=== PATIENT | male | born 1950 | race Caucasian/White ===

== ENCOUNTER → 2017-12-19 | Outpatient (CLI) | payer OTHER ==
[~2017-12-19] MED LIST: ASPI81CH58; CLOP75TA28; NITRO; PRAVASTATIN
== END | disposition home or self-care (01) ==
LOC: Rad HDHVI 10:38
PROVIDERS: ATTEND Internal Medicine Cardiovascular Disease
DX: I11.0 Hypertensive heart disease with heart failure (principal); I50.33 Acute on chronic diastolic (congestive) heart failure
CPT/HCPCS: 93880

== ENCOUNTER → 2017-12-20 | Outpatient (CLI) | payer OTHER ==
[~2017-12-20] VITALS: Ht 185.4 cm; Wt 102.1 kg
[~2017-12-20] MED LIST changes: +ADENOSINE 86 MG in GIVE UN-DILUTED 0 ML IV ONE; +ADENOSINE 90 MG/30 ML INJ IV ONE
== END | disposition home or self-care (01) ==
LOC: Rad HDHVI 13:57
PROVIDERS: ATTEND Internal Medicine Cardiovascular Disease
DX: I11.0 Hypertensive heart disease with heart failure (principal); I50.33 Acute on chronic diastolic (congestive) heart failure; E78.00 Pure hypercholesterolemia, unspecified
CPT/HCPCS: 78452; 93005; 96374; 96375; A9500; J0153

== ENCOUNTER → 2017-12-21 | Outpatient (CLI) | payer OTHER ==
[~2017-12-21] MED LIST changes: -ADENOSINE 86 MG in GIVE UN-DILUTED 0 ML IV ONE; -ADENOSINE 90 MG/30 ML INJ IV ONE
== END | disposition home or self-care (01) ==
LOC: Rad HDHVI 07:59
PROVIDERS: ATTEND Internal Medicine Cardiovascular Disease
DX: I51.7 Cardiomegaly (principal); I50.33 Acute on chronic diastolic (congestive) heart failure
CPT/HCPCS: 93306

== ENCOUNTER → 2021-11-11 | Outpatient (CLI) | payer OTHER ==
[~2021-11-11] MED LIST changes: +ASPI1CHW13; -ASPI81CH58
== END | disposition home or self-care (01) ==
LOC: Rad HDHVI 09:52
PROVIDERS: ATTEND Internal Medicine Cardiovascular Disease
DX: I08.1 Rheumatic disorders of both mitral and tricuspid valves (principal); R06.02 Shortness of breath; I77.819 Aortic ectasia, unspecified site; I25.2 Old myocardial infarction
CPT/HCPCS: 93306

== ENCOUNTER → 2021-11-12 | Outpatient (CLI) | payer OTHER ==
[~2021-11-12] VITALS: Ht 185.4 cm; Wt 100.7 kg
[~2021-11-12] MED LIST changes: +ADENOSINE 84 MG in GIVE UN-DILUTED 0 ML IV ONE; +ADENOSINE 90 MG/30 ML INJ IV ONE
[2021-11-12 12:08] LABS: Basophils # (auto) 0 10 ^3/uL (0-0.2); Basophils % (auto) 0.7 % (0.0-2.0); Eosinophils # (auto) 0.2 10 ^3/uL (0-0.8); Eosinophils % (auto) 3.2 % (0.0-7.0); Hematocrit 40.9 % (41.0-53.0); Hemoglobin 13.6 g/dL (13.5-17.5); Lymphocytes # (auto) 1.1 10 ^3/uL (0.4-5.4); Lymphocytes % (auto) 20.1 % (10.0-50.0); Mean Corpuscular Hgb Conc. 33.3 g/dL (32.0-36.0); Mean Corpuscular Volume 99.2 fL (80.0-100.0); Monocytes # (auto) 0.5 10 ^3/uL (0-1.3); Monocytes % (auto) 9.7 % (0.0-12.0); Neutrophils # (auto) 3.7 10 ^3/uL (1.6-8.6); Neutrophils % (auto) 66.3 % (37.0-80.0); Nucleated Red Blood Cells % 0.1 %; Red Blood Cells 4.12 10^6/uL (4.5-5.90); Red Cell Distribution Width 14.1 % (11.8-14.3); White Blood Cell 5.5 10^3/uL (4.4-10.8)
[2021-11-12 12:14] LABS: Urine Blood Negative /uL (Negative); Urine Specific Gravity 1.022 (1.001-1.035)
[2021-11-12 12:34] LABS: Free T4 (Free Thyroxine) 1.23 ng/dL (0.89-1.76); Prostate Specific Antigen 1.51 ng/mL (0.0-4.0)
[2021-11-12 12:44] LABS: Albumin 3.6 g/dL (3.4-5.0); BUN/Creatinine Ratio 8.9; Bilirubin, Total 0.7 mg/dL (0.2-1.0); Calcium 8.8 mg/dL (8.5-10.1)
== END | disposition home or self-care (01) ==
LOC: Rad HDHVI 08:34
PROVIDERS: ATTEND Internal Medicine Cardiovascular Disease
DX: D51.3 Other dietary vitamin B12 deficiency anemia (principal); I50.33 Acute on chronic diastolic (congestive) heart failure; I10 Essential (primary) hypertension; R00.2 Palpitations; I25.10 Atherosclerotic heart disease of native coronary artery without angina pectoris; E78.5 Hyperlipidemia, unspecified; I73.9 Peripheral vascular disease, unspecified; D64.9 Anemia, unspecified; E11.9 Type 2 diabetes mellitus without complications; E55.9 Vitamin D deficiency, unspecified; R53.1 Weakness; R30.0 Dysuria; C61 Malignant neoplasm of prostate
CPT/HCPCS: 36415; 78452; 80053; 80061; 81003; 82306; 82607; 83036; 84153; 84403; 84439; 84443; 85025; 93005; 96374; 96375; A9500; J0153

== ENCOUNTER → 2021-12-22 | Outpatient (CLI) | payer OTHER ==
[~2021-12-22] MED LIST changes: -ADENOSINE 84 MG in GIVE UN-DILUTED 0 ML IV ONE; -ADENOSINE 90 MG/30 ML INJ IV ONE; +PRAV20TA3 PO; +RANO500T2 PO; +TICA90TA PO
[2021-12-22 11:33] VITALS: BP 129/84
[2021-12-22 11:50] VITALS: BP 129/82
[2021-12-22 16:35] LABS: Basophils # (auto) 0 10 ^3/uL (0-0.2); Basophils % (auto) 0.7 % (0.0-2.0); Eosinophils # (auto) 0.2 10 ^3/uL (0-0.8); Eosinophils % (auto) 3.2 % (0.0-7.0); Hematocrit 43.2 % (41.0-53.0); Lymphocytes # (auto) 1.2 10 ^3/uL (0.4-5.4); Lymphocytes % (auto) 18.8 % (10.0-50.0); Mean Corpuscular Hemoglobin 31.9 pg (28.0-32.0); Mean Corpuscular Hgb Conc. 32.3 g/dL (32.0-36.0); Mean Corpuscular Volume 98.8 fL (80.0-100.0); Monocytes # (auto) 0.6 10 ^3/uL (0-1.3); Monocytes % (auto) 9.4 % (0.0-12.0); Neutrophils # (auto) 4.2 10 ^3/uL (1.6-8.6); Neutrophils % (auto) 67.9 % (37.0-80.0); Red Blood Cells 4.37 10^6/uL (4.5-5.90); Red Cell Distribution Width 14.8 % (11.8-14.3); White Blood Cell 6.2 10^3/uL (4.4-10.8)
[2021-12-22 16:49] LABS: Calcium 8.4 mg/dL (8.5-10.1); Potassium 3.8 mmol/L (3.5-5.1)
[2021-12-22 16:51] LABS: BUN/Creatinine Ratio 14.6; INR 0.96 (0.9-1.15); Partial Thromboplastin Time 26.8 sec (24.6-33.4)
== END | disposition home or self-care (01) ==
LOC: Rad HDHVI 11:18
PROVIDERS: ATTEND Internal Medicine Cardiovascular Disease
DX: Z01.818 Encounter for other preprocedural examination (principal); R94.31 Abnormal electrocardiogram [ECG] [EKG]; J98.4 Other disorders of lung; I70.0 Atherosclerosis of aorta; M47.814 Spondylosis without myelopathy or radiculopathy, thoracic region; R07.89 Other chest pain; R06.02 Shortness of breath; I11.0 Hypertensive heart disease with heart failure; I50.33 Acute on chronic diastolic (congestive) heart failure; R79.1 Abnormal coagulation profile
CPT/HCPCS: 36415; 71046; 80048; 85025; 85610; 85730; 93005; G0463

== ENCOUNTER 2021-12-24 10:55 | Day surgery (SDC) | payer OTHER ==
[~2021-12-24] VITALS: Ht 185.4 cm; Wt 104.3 kg
[~2021-12-24 10:55] MED LIST changes: -CLOP75TA28; -NITRO; -PRAVASTATIN
[2021-12-24] MEDS ORDERED: LIDOCAINE 2%HCL (LOCAL ANESTH.) INJ 20ML MDV ONE (13:09)
[2021-12-24] MEDS ORDERED: IOHEXOL 350 MG/ML 100ML IJ ONE (13:09)
[2021-12-24] MEDS ORDERED: SODIUM CHL 0.9% 50 ML ONE (14:04)
[2021-12-24] MEDS ORDERED: MIDAZOLAM HCL 2MG/2ML 2ml VIAL (1mg/ml) ONE ×2 (14:04→14:28)
[2021-12-24] MEDS ORDERED: fentaNYL CITRATE 100 MCG/2 ML VL ONE (14:04)
[2021-12-24] MEDS ORDERED: ANGIOMAX 250 MG VIAL IV ONE (14:04)
[2021-12-24] MEDS ORDERED: TICAGRELOR 90 MG TAB ONE (14:37)
== END 2021-12-24 16:55 | disposition home or self-care (01) ==
LOC: CATH 10:55
PROVIDERS: ATTEND Internal Medicine Cardiovascular Disease
DX: R94.39 Abnormal result of other cardiovascular function study (principal); I10 Essential (primary) hypertension; I25.10 Atherosclerotic heart disease of native coronary artery without angina pectoris; E78.5 Hyperlipidemia, unspecified; Z79.02 Long term (current) use of antithrombotics/antiplatelets; Z20.822 Contact with and (suspected) exposure to COVID-19; Z87.891 Personal history of nicotine dependence; Z82.49 Family history of ischemic heart disease and other diseases of the circulatory system; Z83.42 Family history of familial hypercholesterolemia; Z80.8 Family history of malignant neoplasm of other organs or systems; Z82.69 Family history of other diseases of the musculoskeletal system and connective tissue
CPT/HCPCS: 93460; 93571; C1760; C1769; C1874; C1887; C1894; C9600; J0583; J1644; J2250; J3010; Q9967; U0003; 93458; 99152; 99153

== ENCOUNTER → 2024-02-19 | Outpatient (CLI) | payer OTHER ==
[~2024-02-19] VITALS: Ht 185.4 cm; Wt 102.1 kg
[~2024-02-19] MED LIST changes: +ADENOSINE 86 MG in GIVE UN-DILUTED 0 ML IV ONE; +ADENOSINE 90 MG/30 ML INJ IV ONE
== END | disposition home or self-care (01) ==
LOC: Rad HDHVI 10:17
PROVIDERS: ATTEND Internal Medicine Cardiovascular Disease
DX: R00.1 Bradycardia, unspecified (principal); I49.1 Atrial premature depolarization; I49.3 Ventricular premature depolarization; I25.110 Atherosclerotic heart disease of native coronary artery with unstable angina pectoris; I10 Essential (primary) hypertension; R07.89 Other chest pain; E78.00 Pure hypercholesterolemia, unspecified; I25.5 Ischemic cardiomyopathy
CPT/HCPCS: 78452; 93005; 93306; 96374; 96375; A9500; J0153

== ENCOUNTER 2024-03-09 11:33 | Inpatient (IN) | payer OTHER ==
[~2024-03-09] VITALS: Ht 185.4 cm; Wt 105.0 kg
[~2024-03-09 11:33] MED LIST changes: -ADENOSINE 86 MG in GIVE UN-DILUTED 0 ML IV ONE; -ADENOSINE 90 MG/30 ML INJ IV ONE
[2024-03-09 11:57] LABS: Basophils # (auto) 0 10 ^3/uL (0-0.2); Basophils % (auto) 0.7 % (0.0-2.0); Eosinophils # (auto) 0.4 10 ^3/uL (0-0.8); Eosinophils % (auto) 6.2 % (0.0-7.0); Hematocrit 38.3 % (41.0-53.0); Hemoglobin 12.6 g/dL (13.5-17.5); Lymphocytes # (auto) 1.8 10 ^3/uL (0.4-5.4); Lymphocytes % (auto) 30.1 % (10.0-50.0); Mean Corpuscular Hemoglobin 31.2 pg (28.0-32.0); Mean Corpuscular Hgb Conc. 32.8 g/dL (32.0-36.0); Mean Corpuscular Volume 95.1 fL (80.0-100.0); Monocytes # (auto) 0.6 10 ^3/uL (0-1.3); Monocytes % (auto) 10.4 % (0.0-12.0); Neutrophils # (auto) 3.1 10 ^3/uL (1.6-8.6); Neutrophils % (auto) 52.6 % (37.0-80.0); Platelet Count (auto) 294 10^3/uL (140-450); Red Blood Cells 4.03 10^6/uL (4.5-5.90); White Blood Cell 5.8 10^3/uL (4.4-10.8)
[2024-03-09 12:17] LABS: Alanine Aminotransferase 20 U/L (7-40); Albumin 3.9 g/dL (3.2-4.8); Alkaline Phosphatase 59 U/L (46-116); Anion Gap 8 (5-15); Aspartate Aminotransferase 10 U/L (13-40); BUN/Creatinine Ratio 9.9 (10.0-20.0); Blood Urea Nitrogen 10 mg/dL (9-23); Carbon Dioxide 25 mmol/L (20-31); Chloride 108 mmol/L (98-107); Glucose 90 mg/dL (74-106); Magnesium 1.9 mg/dL (1.6-2.6); Sodium 141 mmol/L (136-145)
[2024-03-09 12:18] LABS: Bilirubin, Total 0.2 mg/dL (0.2-1.0); Total Protein 6.4 g/dL (5.7-8.2)
--- NOTE | 2024-03-09 12:43 | ED.PDOC ---
HPI Comments 73y F who presents to the ED for chief complaint of chest pain. Pt states she has been having chest pain since last night PM. Pt states the pain is substernal, non-radiating, sharp and tightness in nature, rating the ozuna 5/10, with no associated exacerbating or relieving factors. Pt denies any associated shortness of breath, palpitations, diaphoresis, nausea, vomiting, headache or dizziness. Pt states she has had these symptoms in the past and states she is followed by Dr. Akers, chief development officer. Pt otherwise denies any other symptoms at this time. Chief Complaint: Chest Pain Time Seen by MD: 12:41 Primary Care Provider: KAYLA Norton Notes: Medications, Allergies Allergies: Coded Allergies: NO KNOWN ALLERGIES (Unverified , 11/02/10) Home Meds Reported Medications Pravastatin Sodium (PRAVACHOL TABLET) 20 Mg Tb, 40 MG PO DAILY, TAB 12/22/21 Ranolazine (Ranexa) 500 Mg Tab, 500 MG PO BID 12/22/21 Ticagrelor Base (BRILINTA) 90 Mg Tab, 90 MG PO BID 12/22/21 Aspirin (Aspirin Adult Low Strengt) 81 Mg Chw 11/02/10 Information Source: Patient Mode of Arrival: Ambulatory Brought in by: family member Past Medical History PAST MEDICAL HISTORY: CAD Surgical History: Denies all surgeries Family History Family History: Reviewed,noncontributory to illness Social History Smoker: Non-Smoker Alcohol: Denies ETOH Use Drugs: Denies Drug Use Lives In: Home Constitutional: denies: chills, diaphoresis, fatigue, fever, malaise, sweats, weakness, others EENTM: denies: blurred vision, double vision, ear bleeding, ear discharge, ear drainage, ear pain, ear ringing, eye pain, eye redness, hearing loss, mouth pain, mouth swelling, nasal discharge, nose bleeding, nose congestion, nose pain, photophobia, tearing, throat pain, throat swelling, voice changes, others Respiratory: denies: cough, hemoptysis, orthopnea, SOB at rest, shortness of breath, SOB with excertion, stridor, wheezing, others Cardiovascular: reports: chest pain; denies: dizzy spells, diaphoresis, Dyspnea on exertion, edema, irregular heart beat, left arm pain, lightheadedness, palpitations, PND, syncope, others Gastrointestinal: denies: abdomen distended, abdominal pain, blood streaked bowels, constipated, diarrhea, dysphagia, difficulty swallowing, hematemesis, melena, nausea, poor appetite, poor fluid intake, rectal bleeding, rectal pain, vomiting, others Genitourinary: denies: burning, dysuria, flank pain, frequency, hematuria, incontinence, penile discharge, penile sore, pain, testicle pain, testicle swelling, urgency, others Neurological: denies: dizziness, fainting, headache, left sided numbness, left sided weakness, numbness, paresthesia, pre-existing deficit, right sided num bness, right sided weakness, seizure, speech problems, tingling, tremors, weakness, others Musculoskeletal: denies: back pain, gout, joint pain, joint swelling, muscle pain, muscle stiffness, neck pain, others Integumetry: denies: bruises, change in color, change in hair/nails, dryness, laceration, lesions, lumps, rash, wounds, others Allergic/Immunocompromised: denies: Difficulty Healing, Frequent Infections, Hives, Itching, others Hematologic/Lymphatic: denies: anemia, blood clots, easy bleeding, easy bruising, swollen glands, others Endocrine: denies: excessive hunger, excessive sweating, excessive thirst, excessive urination, flushing, intolerance to cold, intolerance to heat, unexplained weight gain, unexplained weight loss, others Psychiatric: denies: anxiety, bipolar disorder, depression, hopeless, panic disorder, schizophrenia, sleepless, suicidal, others All Other Systems: Reviewed and Negative Physical Exam General Appearance: No Apparent Distress, Normal HEENT: Normal ENT Inspection, Pharynx Normal, TMs Normal Neck: Full Range of Motion, Non-Tender, Normal, Normal Inspection Respiratory: Chest Non-Tender, Lungs Clear, No Accessory Muscle Use, No Respiratory Distress, Normal Breath Sounds Cardiovascular: No Edema, No JVD, No Murmur, No Gallop, Normal Peripheral Pulses, Regular Rate/Rhythm Breast Exam: Deferred Gastrointestinal: No Organomegaly, Non Tender, No Pulsatile Mass, Normal Bowel Sounds, Soft Genitalia: Deferred Pelvic: Deferred Rectal: Deferred Extremities: No calf tenderness, Normal capillary refill, Normal inspection, Normal range of motion, Non-tender, No pedal edema Musculoskeletal : Apperance: Normal Neurologic: Alert, ccu nurse II-XII nml as Tested, No Motor Deficits, Normal Affect, Normal Mood, No Sensory Deficits Cerebellar Function: Normal Reflexes: Normal Skin: Dry, Normal Color, Warm Lymphatic: No Adenopathy Was a procedure done? Was a procedure done?: No CP Differential Dx Differential Diagnosis: A-fib, A-Flutter, Angina, Anxiety / Panic Attack, Electrolyte Disorder, PVC's Differential Diagnosis: HTN Essential Differential Diagnosis: Chest Wall Pain, Costochondritis, Esophageal reflux/spasm X-Ray, Labs, Meds, VS Vital Signs Date Time Temp Pulse Resp B/P (MAP) Pulse Ox O2 Delivery O2 Flow Rate FiO2 03/09/24 15:00 98.0 70 18 108/70 (83) 97 98.0 03/09/24 12:19 80 03/09/24 11:42 82 03/09/24 11:41 98.2 82 16 104/55 (71) 96 Lab Test 03/09/24 12:43 03/09/24 11:45 Range/Units Troponin I High Sensitivity < 3 L < 3 L </=54 ng/L White Blood Count 5.8 4.4-10.8 10^3/uL Red Blood Count 4.03 L 4.5-5.90 10^6/uL Hemoglobin 12.6 L 13.5-17.5 g/dL Hematocrit 38.3 L 41.0-53.0 % Mean Corpuscular Volume 95.1 80.0-100.0 fL Mean Corpuscular Hemoglobin 31.2 28.0-32.0 pg Mean Corpuscular Hemoglobin Concent 32.8 32.0-36.0 g/dL Red Cell Distribution Width 14.0 11.8-14.3 % Platelet Count 294 140-450 10^3/uL Mean Platelet Volume 7.4 6.9-10.8 fL Neutrophils (%) (Auto) 52.6 37.0-80.0 % Lymphocytes (%) (Auto) 30.1 10.0-50.0 % Monocytes (%) (Auto) 10.4 0.0-12.0 % Eosinophils (%) (Auto) 6.2 0.0-7.0 % Basophils (%) (Auto) 0.7 0.0-2.0 % Neutrophils # (Auto) 3.1 1.6-8.6 10 ^3/uL Lymphocytes # (Auto) 1.8 0.4-5.4 10 ^3/uL Monocytes # (Auto) 0.6 0-1.3 10 ^3/uL Eosinophils # (Auto) 0.4 0-0.8 10 ^3/uL Basophils # (Auto) 0 0-0.2 10 ^3/uL Nucleated Red Blood Cells 0.0 % Sodium Level 141 136-145 mmol/L Potassium Level 4.0 3.5-5.1 mmol/L Chloride Level 108 H 98-107 mmol/L Carbon Dioxide Level 25 20-31 mmol/L Anion Gap 8 5-15 Blood Urea Nitrogen 10 9-23 mg/dL Creatinine 1.01 0.700-1.30 mg/dL Glomerular Filtration Rate Calc 79 >90 mL/min BUN/Creatinine Ratio 9.9 L 10.0-20.0 Serum Glucose 90 74-106 mg/dL Calcium Level 9.0 8.7-10.4 mg/dL Magnesium Level 1.9 1.6-2.6 mg/dL Total Bilirubin 0.2 0.2-1.0 mg/dL Aspartate Amino Transferase (AST) 10 L 13-40 U/L Alanine Aminotransferase (ALT) 20 7-40 U/L Alkaline Phosphatase 59 46-116 U/L Total Protein 6.4 5.7-8.2 g/dL Albumin 3.9 3.2-4.8 g/dL Time of 1ST Reevaluation: 13:20 Reevaluation 1ST: Unchanged Time of 2ND Reevaluation: 16:03 Reevaluation 2ND: Improved Patient Education/Counseling: Diagnosis, Treatment Family Education/Counseling: Diagnosis, Treatment Additional Information pt had: no prior external notes the following tests were ordered in the ED: CBC, CMP, Tropininx3, EKGx3, Magnesium independent historians: family member reviewed and agreed with results interpreted by independent provider: none results and treatments performed in the ED were discussed with: patient and medical personnel Departure 1 Departure Time of Disposition: 16:04 Impression: Primary Impression: Chest pain Disposition: 09 ADMITTED INPATIENT Admit to: Tele Condition: Stable Critical Care Note Critical Care Time?: Yes (45 min-critical care time only) Critical care comment: due to the real possibility of patient's condition deteriorating, his care requires my highest attention and readiness to intervene. i assessed the kathy ent, ordered the proper tests and treatments, reassessed him for response, formulated a plan, discussed it with medical personnel, and consultants,. total time include more than 50% face to face contact and does not include any procedures Stability Stability form required: No Heart Score Heart Score: Heart Score Response (Comments) Value History Slightly Suspicious 0 EKG Normal 0 Age >65 2 Risk Factors 1 or 2 risk factors 1 Troponin Normal limit 0 Total 3 I personally scribed for SARBJIT EASTON MD ([email or web address]) on 03/09/24 at 12:43. Electronically submitted by Meghan Harrison ([email or web address]). SARBJIT EASTON MD Mar 09, 2024 12:43
--- NOTE | 2024-03-09 15:48 | ECG ---
[facility] Test Date: 2024-03-09 Test Time: 12:19:10 Pat Name: WONG JUAREZ Department: ER Room: [address] [place] [address] Gender: M Outside Physical Damage Appraiser: LEOPOLDO : 1950 Requested By: BERHANE EASTON Order Number: [id number] Reading MD: Kaden Wong Measurements Intervals [place] Rate: 80 P: 30 MT: 149 QRS: -62 QRSD: 100 T: 4 QT: 404 QTc: 466 Interpretive Statements Sinus rhythm Left anterior fascicular block Abnormal R-wave progression, late transition Electronically Signed On 03-12-2024 8:21:23 PST by Kaden Wong Please click the below link to view image of tracing.
--- NOTE | 2024-03-09 18:58 | DVHHP2 ---
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 for the management of cardiac history comes to the ed with complaints of chest pain with significant pain intermittently patient already on anticoagulation regimen but had consistent pain was recommended for in patient evaluation Cardiovascular: CAD, HTN Review of Systems Constitutional: Yes: Weakness; No: Fever, Chills, Sweats, Malaise, Other Eyes: No: Pain, Vision change, Conjunctivae inflammation, Eyelid inflammation, Other, Redness ENT: No: Ear pain, Ear discharge, Nose pain, Nose discharge, Nose congestion, Mouth pain, Mouth swelling, Throat pain, Throat swelling, Other Respiratory: Shortness of breath; No: Cough, Dry, SOB with excertion, Wheezing, Hemoptysis, Pleuritic Pain, Sputum, Wheezing, Other Cardiovascular: Chest Pain, Palpitations; No: Orthopnea, Paroxysmal Noc. Dyspnea, Edema, Lt Headedness, Other Gastrointestinal: No: Nausea, Vomiting, Abdominal Pain, Diarrhea, Constipation, Melena, Hematochezia, Other Genitourinary: No Dysuria, No Frequency, No Incontinence, No Hematuria, No Retention, No Other Musculoskeletal: No: other, neck pain, shoulder pain, arm pain, back pain, hand pain, leg pain, foot pain Skin: No: Rash, Lesions, Jaundice, Bruising, Other Neurological: No: Weakness, Numbness, Incoordination, Change in speech, Confusion, Seizures, Other Allergies: Coded Allergies: NO KNOWN ALLERGIES (Unverified , 11/02/10) Exam Vital Signs Vital Signs Date Time Temp Pulse Resp B/P (MAP) Pulse Ox O2 Delivery O2 Flow Rate FiO2 03/09/24 17:50 70 18 122/72 (89) 96 03/09/24 15:00 98.0 98.0 General Appearance: Alert, Oriented X3, mild distress HEENT: Atraumatic, PERRLA Respiratory: Clear to auscultation, Normal air movement Cardiovascular: Regular rate, Normal S1 Abdominal: Normal bowel sounds, Soft Extremities: No clubbing, No cyanosis Skin: No rashes, No breakdown Neuro: Normal gait, Normal speech Psych/Mental Status: Mood NL Labs/Xrays Labs Test 03/09/24 12:43 03/09/24 11:45 Range/Units Troponin I High Sensitivity < 3 L </=54 ng/L White Blood Count 5.8 4.4-10.8 10^3/uL Red Blood Count 4.03 L 4.5-5.90 10^6/uL Hemoglobin 12.6 L 13.5-17.5 g/dL Hematocrit 38.3 L 41.0-53.0 % Mean Corpuscular Volume 95.1 80.0-100.0 fL Mean Corpuscular Hemoglobin 31.2 28.0-32.0 pg Mean Corpuscular Hemoglobin Concent 32.8 32.0-36.0 g/dL Red Cell Distribution Width 14.0 11.8-14.3 % Platelet Count 294 140-450 10^3/uL Mean Platelet Volume 7.4 6.9-10.8 fL Neutrophils (%) (Auto) 52.6 37.0-80.0 % Lymphocytes (%) (Auto) 30.1 10.0-50.0 % Monocytes (%) (Auto) 10.4 0.0-12.0 % Eosinophils (%) (Auto) 6.2 0.0-7.0 % Basophils (%) (Auto) 0.7 0.0-2.0 % Neutrophils # (Auto) 3.1 1.6-8.6 10 ^3/uL Lymphocytes # (Auto) 1.8 0.4-5.4 10 ^3/uL Monocytes # (Auto) 0.6 0-1.3 10 ^3/uL Eosinophils # (Auto) 0.4 0-0.8 10 ^3/uL Basophils # (Auto) 0 0-0.2 10 ^3/uL Nucleated Red Blood Cells 0.0 % Sodium Level 141 136-145 mmol/L Potassium Level 4.0 3.5-5.1 mmol/L Chloride Level 108 H 98-107 mmol/L Carbon Dioxide Level 25 20-31 mmol/L Anion Gap 8 5-15 Blood Urea Nitrogen 10 9-23 mg/dL Creatinine 1.01 0.700-1.30 mg/dL Glomerular Filtration Rate Calc 79 >90 mL/min BUN/Creatinine Ratio 9.9 L 10.0-20.0 Serum Glucose 90 74-106 mg/dL Calcium Level 9.0 8.7-10.4 mg/dL Magnesium Level 1.9 1.6-2.6 mg/dL Total Bilirubin 0.2 0.2-1.0 mg/dL Aspartate Amino Transferase (AST) 10 L 13-40 U/L Alanine Aminotransferase (ALT) 20 7-40 U/L Alkaline Phosphatase 59 46-116 U/L Total Protein 6.4 5.7-8.2 g/dL Albumin 3.9 3.2-4.8 g/dL Assessment/Plan Assessment/Plan Admit Med/Surg Chest Pain rule out ACS trops negative thus far continued chest pain with cardiac history prn pain managment chest pain protocol history cad follows kayy outpatient c/w home meds regimen including ASA and Brillinta Plan discussed with: Patient My Orders Orders - RAFAELA SMITH MD Procedure Category Date Status Time Admit ADMIT 03/09/24 Transmitted 18:49 Code Status CODE 03/09/24 Transmitted 18:49 Cardiac DIET 03/10/24 Transmitted Diet-2gna,Lofat,Lochol Breakfast Aspirin Tablet PHA 03/10/24 Transmitted 10:00 Lipitor 40mg Hs PHA 03/09/24 Transmitted Hi-Intensity 22:00 Carvedilol Tablet PHA 03/09/24 Transmitted (Coreg Tablet) 22:00 Enalapril Tablet PHA 03/09/24 Transmitted (Vasotec Tablet) 22:00 Acetaminophen Tablet PHA 03/09/24 Transmitted (Tylenol Tablet) 19:00 Zolpidem Tartrate PHA 03/09/24 Transmitted (Ambien) 19:00 Docusate Sodium PHA 03/10/24 Transmitted Capsule (Colace 10:00 Complete Blood Count LAB 03/10/24 Verified 04:00 Basic Metabolic Panel LAB 03/10/24 Verified 04:00 Ondansetron Hcl PHA 03/09/24 Transmitted (Zofran) 19:00 Electrocardigram EKG 03/09/24 Transmitted 18:49 Alum & Mag PHA 03/09/24 Transmitted Hydrox-Simethicone 19:00 Troponin-I Hs LAB 03/09/24 Transmitted 18:49 Cardiac TORRES 03/09/24 Transmitted Rehabilitation - Outpa Nitroglycerin PHA 03/09/24 Transmitted Sublingual (Ntrostat 19:00 Morphine Sulfate PHA 03/09/24 Transmitted Injection 19:00 Stat Ekg For Chest [facility] 03/09/24 Transmitted Pain 18:49 Notify Of Changes [facility] 03/09/24 Transmitted From Base 18:49 Pipe Stress Engineer For TORRES 03/09/24 Transmitted 24 Hours 18:49 Emergency Dysrhythmia [facility] 03/09/24 Transmitted Protocol 18:49 Rhythm Strips Once [facility] 03/09/24 Transmitted Every Shift 18:49 Oxygen By Nasal RT 03/09/24 Transmitted Cannula 18:49 Pravastatin Sodium [facility] 03/10/24 Transmitted Tablet (Pravachol Tab 10:00 Ranolazine (Ranexa Er) [facility] 03/09/24 Transmitted 22:00 Ticagrelor (Brilinta) PHA 03/09/24 Transmitted 22:00 Problem List: (1) Chest pain Date of Service: Mar 09, 2024 Billing Provider: RAFAELA SMITH MD Common Visit Codes: 47591-[id number] INP/OBS CARE (HIGH) RAFAELA SMITH MD Mar 09, 2024 18:58
[2024-03-09] MEDS ORDERED: ONDANSETRON HCL 4 MG/2 ML VIAL IV PRN (19:00)
[2024-03-09] MEDS ORDERED: ZOLPIDEM TARTRATE 5 MG TAB PO PRN (19:00)
[2024-03-09] MEDS ORDERED: NITROGLYCERIN 0.4 MG SL TAB SL PRN (19:00)
[2024-03-09] MEDS ORDERED: MORPHINE SULFATE INJ 2 MG/ml SYRG IV PRN (19:00)
[2024-03-09] MEDS ORDERED: ACETAMINOPHEN 325 MG TAB PO PRN (19:00)
[2024-03-09] MEDS: MAALOX PLUS or MAALOX 30 ML PO ONE (19:17)
[2024-03-09 19:30] VITALS: BP 121/62; PULSE 85; RESP 16; TEMP 98; O2SAT 98
[2024-03-09] MEDS ORDERED: TICAGRELOR 90 MG TAB PO SCH (22:00)
[2024-03-09] MEDS ORDERED: ENALAPRIL MALEATE 2.5 MG TAB PO SCH (22:00)
[2024-03-09] MEDS ORDERED: CARVEDILOL 3.125 MG TAB PO SCH (22:00)
[2024-03-09] MEDS ORDERED: RANOLAZINE ER 500 MG TAB PO SCH (22:00)
[2024-03-09] MEDS ORDERED: ATORVASTATIN 20 MG TAB PO SCH (22:00)
[2024-03-10] MEDS ORDERED: ASPirin 81 mg TAB PO SCH (10:00)
[2024-03-10] MEDS ORDERED: PRAVASTATIN SODIUM 20 MG TAB PO SCH (10:00)
[2024-03-10] MEDS ORDERED: DOCUSATE SOD 100 MG CAP PO SCH (10:00)
== END 2024-03-10 00:30 | disposition left against medical advice (07) | DRG 313 ==
LOC: ER 11:33 → OVERFLOW 18:49 → TELE 18:53
PROVIDERS: ADMIT Hospitalist; ATTEND Hospitalist
DX: R07.89 Other chest pain (principal); I10 Essential (primary) hypertension; I25.10 Atherosclerotic heart disease of native coronary artery without angina pectoris; Z79.899 Other long term (current) drug therapy
CPT/HCPCS: 36415; 80053; 83735; 84484; 85025; 93005; 99291; G0378

== ENCOUNTER → 2024-04-03 | Outpatient (CLI) | payer OTHER ==
[~2024-04-03] MED LIST changes: +COEN30CA7 PO; +GABA-1308 PO; +MORP15TA PO; +MULT-1018 PO; +NITR0.4S29 SL; +OLME20TA53 PO; +TICA1TAB PO; +VERI2.5T PO
[2024-04-03 09:12] VITALS: BP 145/93; PULSE 88; RESP 18; O2SAT 96
[2024-04-03 09:23] VITALS: BP 142/68; PULSE 86; RESP 18; O2SAT 96
--- NOTE | 2024-04-03 11:52 | DVH ---
XY CHEST TWO VIEWS ROUTINE CLINICAL HISTORY: PRE OP COMPARISON: CHEST TWO VIEWS ROUTINE on DOS: 12/22/21, CXR2 on DOS: 12/22/21 TECHNIQUE: Frontal and lateral view of the chest was obtained FINDINGS: Lines and Tubes: None Lungs: No focal consolidation. Pleura: No effusion. No pneumothorax. Cardiomediastinal contours: Unremarkable Bones: No acute osseous abnormality. IMPRESSION: 1. No radiographic evidence of acute cardiopulmonary disease. HS:Y
== END | disposition home or self-care (01) ==
LOC: Rad HDHVI 09:04
PROVIDERS: ATTEND Internal Medicine Cardiovascular Disease
DX: Z01.818 Encounter for other preprocedural examination (principal); R07.9 Chest pain, unspecified
CPT/HCPCS: 71046; 93005; G0463

== ENCOUNTER 2024-04-04 08:12 | Day surgery (SDC) | payer OTHER ==
[2024-04-03 10:44] LABS: Basophils # (auto) 0 10 ^3/uL (0-0.2); Basophils % (auto) 0.5 % (0.0-2.0); Eosinophils # (auto) 0.5 10 ^3/uL (0-0.8); Hematocrit 42.3 % (41.0-53.0); Hemoglobin 13.9 g/dL (13.5-17.5); Lymphocytes # (auto) 1.5 10 ^3/uL (0.4-5.4); Lymphocytes % (auto) 22.7 % (10.0-50.0); Mean Corpuscular Hemoglobin 31.3 pg (28.0-32.0); Mean Corpuscular Hgb Conc. 32.8 g/dL (32.0-36.0); Mean Corpuscular Volume 95.5 fL (80.0-100.0); Monocytes # (auto) 0.6 10 ^3/uL (0-1.3); Monocytes % (auto) 9.6 % (0.0-12.0); Neutrophils % (auto) 60.2 % (37.0-80.0); Platelet Count (auto) 319 10^3/uL (140-450); Red Blood Cells 4.43 10^6/uL (4.5-5.90); Red Cell Distribution Width 14.8 % (11.8-14.3); White Blood Cell 6.6 10^3/uL (4.4-10.8)
[2024-04-03 11:00] LABS: Chloride 107 mmol/L (98-107); Sodium 140 mmol/L (136-145)
[2024-04-03 11:01] LABS: Anion Gap 7 (5-15); Carbon Dioxide 26 mmol/L (20-31)
[2024-04-03 11:02] LABS: Calcium 9.9 mg/dL (8.7-10.4)
[2024-04-03 11:06] LABS: Glucose 99 mg/dL (74-106)
[2024-04-03 11:07] LABS: Blood Urea Nitrogen 12 mg/dL (9-23); Potassium 5.3 mmol/L (3.5-5.1)
[2024-04-03 11:14] LABS: INR 1.03 (0.9-1.15); Partial Thromboplastin Time 24.8 SEC (24.5-34.5); Prothrombin Time 10.9 sec (9.3-11.8)
[~2024-04-04] VITALS: Ht 185.4 cm; Wt 102.1 kg
[~2024-04-04 08:12] MED LIST changes: -RANO500T2 PO; -TICA90TA PO
[2024-04-04] MEDS ORDERED: fentaNYL CITRATE 100 MCG/2 ML VL ONE (10:33)
[2024-04-04] MEDS ORDERED: ANGIOMAX 250 MG VIAL IV ONE (10:33)
[2024-04-04] MEDS ORDERED: MIDAZOLAM HCL 2MG/2ML 2ml VIAL (1mg/ml) ONE (10:34)
[2024-04-04] MEDS ORDERED: LIDOCAINE 2%HCL (LOCAL ANESTH.) INJ 10ml MDV ONE (10:34)
[2024-04-04] MEDS ORDERED: SODIUM CHL 0.9% 50 ML ONE (10:34)
--- NOTE | 2024-04-04 11:30 | DVHHP ---
ADMIT DATE: 04/04/2024 HISTORY OF PRESENT ILLNESS: A 73-year-old with history of hypertension, hyperlipidemia, now having chest pain. He had stent placement to the ramus branch as well as stent to the RCA in 2021 by me. Since then, the patient has been doing extremely well. PERTINENT MEDICAL HISTORY: Significant for father with coronary artery disease as well. He had no history of any cardiac arrest. He continued to smoke in the past, now uses smokeless tobacco. The patient has left lower extremity swelling when he sits for a long time secondary to venous insufficiency. He quit smoking cigarettes 10 years ago. Denies any cardiac arrest. Denies any diabetes. No history of renal failure. No history of heart failure. CURRENT MEDICATIONS: Include Benicar, Verquvo, Brilinta, aspirin, and pravastatin. FAMILY HISTORY: As described above. SOCIAL HISTORY: As described above. PHYSICAL EXAMINATION: VITAL SIGNS: Blood pressure is 124/80, pulse of 70, O2 saturation 98% on room air. HEENT: Pupils are reactive. Funduscopic exam is benign. Sclerae anicteric. Extraocular muscles are intact. Oral mucosa moist. NECK: No JVD appreciated. Carotid pulses are 2+ symmetrical. No cervical adenopathy, no supraclavicular adenopathy. No nuchal rigidity. PULMONARY: Clear to auscultation. CARDIOVASCULAR: Regular rate. PMI is not displaced. 2/6 systolic murmur along the left sternal border. ABDOMEN: Obese. Unable to appreciate an organomegaly. Liver approximately 5 cm by percussion. Stool guaiac is negative. NEUROLOGIC: The patient is intact. EXTREMITIES: 1+ edema bilaterally, left greater than right. ASSESSMENT AND PLAN: Thus, the patient with previous coronary artery disease, now with chest pain, now to undergo coronary angiography to define coronary anatomy. The patient already on dual antiplatelet therapy. Further recommendations after the left heart catheterization. Oswald Mayers MD SA/RUBIO TID: [id number] RECEIPT: [id number]
--- NOTE | 2024-04-04 11:56 | DVHDS ---
DATE OF DISCHARGE: 04/04/2024 DISCHARGE DIAGNOSIS: The patient with coronary artery disease. Angiogram shows patent coronary anatomy with EF around 60% with an LVEDP of 15 mmHg with no gradient across the aortic valve. Left ventricular systolic pressure was 98 mmHg. HOSPITAL COURSE: Thus the patient is clinically stable at this time. No catheter-based or surgical intervention is warranted. Stable at the time of discharge. DISPOSITION: Home. ACTIVITY: As instructed. DIET: Will be 2 g sodium diet. Oswald Mayers MD SA/ROBERTO TID: [id number] RECEIPT: [id number]
--- NOTE | 2024-04-04 12:38 | DVHOP ---
DATE OF SURGERY: 04/04/2024 PROCEDURES PERFORMED: * Selective left and right coronary angiography. * Ventriculogram. * Right iliac angiography. * Conscious sedation. DESCRIPTION OF PROCEDURE: The patient was prepped and draped under sterile condition. Xylocaine 1% used to anesthetize the right groin. Using a Cook needle, right femoral artery was engaged with Seldinger technique, a 6-Belarusian sheath in the right femoral artery. Using 6-Bel[place]ian JL4 catheter and 6-[place]ian JR4 catheter, selective left and right coronary angiography was performed. Using 6-Belarusian pigtail catheter, ventriculogram was done. Total contrast used was 60 mL. Total fluoro time was 1 minute. RESULTS: * Left main without any flow-restrictive lesion. * Left anterior descending artery without any flow-restrictive lesion. * The ramus branch previous site of angioplasty without any flow-restrictive lesion. * Circumflex without any flow-restrictive lesion. * Right coronary artery without any flow-restrictive lesion. Rapid tapering otherwise unremarkable. Previous site of angioplasty, no residual stenosis. Thus, the patient's coronary angiography shows patent coronary anatomy. At this time, no catheter-based or surgical intervention is warranted. Continue aggressive risk modification. Oswald Mayers MD SA/ZOE/SHAHEEN TID: [id number] RECEIPT: [id number]
== END 2024-04-04 14:14 | disposition home or self-care (01) ==
LOC: CATH 08:12
PROVIDERS: ATTEND Internal Medicine Cardiovascular Disease
DX: R07.9 Chest pain, unspecified (principal); I25.10 Atherosclerotic heart disease of native coronary artery without angina pectoris; I10 Essential (primary) hypertension; Z95.5 Presence of coronary angioplasty implant and graft; Z87.891 Personal history of nicotine dependence; Z83.42 Family history of familial hypercholesterolemia; Z80.9 Family history of malignant neoplasm, unspecified; Z82.49 Family history of ischemic heart disease and other diseases of the circulatory system
CPT/HCPCS: 36415; 80048; 85025; 85610; 85730; 93458; C1760; C1894; J1644; J2003; J2250; J3010; 99152

== ENCOUNTER 2025-03-31 08:00 | Outpatient (CLI) | payer OTHER ==
[~2025-03-31] VITALS: Ht 185.4 cm; Wt 106.6 kg
[2025-03-31] MEDS ORDERED: ADENOSINE 90 MG/30 ML INJ IV ONE (08:56)
[2025-03-31] MEDS ORDERED: ADENOSINE 90 MG in GIVE UN-DILUTED 0 ML IV ONE (11:45)
== END 2025-03-31 17:00 | disposition home or self-care (01) ==
LOC: Rad HDHVI 08:00
PROVIDERS: ATTEND Internal Medicine Cardiovascular Disease
DX: I11.0 Hypertensive heart disease with heart failure (principal); I50.43 Acute on chronic combined systolic (congestive) and diastolic (congestive) heart failure
CPT/HCPCS: 78452; 93306; A9500; J0153; 93017